=== PATIENT | male | born 1990 | race Caucasian/White ===

== ENCOUNTER 2021-04-11 21:55 | Emergency (ER) | payer OTHER ==
[~2021-04-11] VITALS: Ht 177.8 cm; Wt 199.6 kg
[2021-04-12] MEDS ORDERED: AZITHROMYCIN250 MG PO (00:16)
== END 2021-04-12 00:15 | disposition home or self-care (01) ==
LOC: ER 22:06
DX: S30.1XXA Contusion of abdominal wall, initial encounter (principal); H92.03 Otalgia, bilateral; I10 Essential (primary) hypertension; V09.9XXA Pedestrian injured in unspecified transport accident, initial encounter
CPT/HCPCS: 36415; 74176; 82948; 99283